=== PATIENT | female | born 1955 | race Caucasian/White ===

== ENCOUNTER 2023-03-09 10:09 | Outpatient (CLI) | payer MEDICARE, SELFPAY | END 2023-03-09 10:10 | disposition home or self-care (01) | PROVIDERS: PCP Internal Medicine; Visit Provider Internal Medicine | DX: E78.5 Hyperlipidemia, unspecified (principal); M85.80 Other specified disorders of bone density and structure, unspecified site | CPT/HCPCS: 80061; 82306 ==

== ENCOUNTER 2023-03-16 10:37 | Outpatient (CLI) | payer MEDICARE, OTHER, SELFPAY ==
--- NOTE | 2023-03-16 10:45 | CRLHL7_ITS ---
For Patients: As a result of the Cures Act, medical imaging exams and procedure reports are released immediately into your electronic medical record. You may view this report before your referring provider. If you have questions, please contact your health care provider. DIGITAL DIAGNOSTIC BILATERAL MAMMOGRAM USING TOMOSYNTHESIS AND COMPUTER-AIDED DETECTION LEFT BREAST ULTRASOUND CLINICAL HISTORY: LEFT breast pain. COMPARISON: 11/16/2021, 10/20/2020, 09/06/2019, 08/28/2018. TECHNIQUE: Digital BILATERAL mammogram in four projections. Tomosynthesis and CAD utilized. Real-time ultrasound imaging of LEFT breast with imaging documentation. BREAST COMPOSITION: There are areas of scattered fibroglandular density. FINDINGS: 3D CC/MLO BILATERAL mammogram images submitted. No suspicious masses or architectural distortion. No adenopathy or suspicious calcifications. Targeted LEFT breast ultrasound performed in the area of concern at 2 o`clock and 1 o`clock 5 cm from the nipple. Normal fibroglandular tissue is noted. No fibrocystic change or mass. IMPRESSION: Normal BILATERAL mammograms and normal targeted LEFT breast ultrasound. No evidence of malignancy. RECOMMENDATIONS: Annual BILATERAL screening mammography. Results and recommendations discussed with the patient. BI-RADS Category 2: Benign A lay language report of this examination will be provided to the patient. Dictated by Conrad Oquendo MD @ 03/16/2023 12:38:56 PM /Dictated by: Conrad Oquendo MD @ 03/16/2023 12:38:00 PM (Electronically Signed)
--- NOTE | 2023-03-16 11:15 | CRLHL7_ITS ---
For Patients: As a result of the Cures Act, medical imaging exams and procedure reports are released immediately into your electronic medical record. You may view this report before your referring provider. If you have questions, please contact your health care provider. PLEASE SEE DIGITAL DIAGNOSTIC BILATERAL MAMMOGRAM PERFORMED SAME DAY CRL:whitney olson/Dictated by: oCnrad Oquendo MD @ 03/16/2023 12:39:00 PM (Electronically Signed)
== END 2023-03-16 10:38 | disposition home or self-care (01) ==
LOC: MAMMO 10:38
PROVIDERS: PCP Internal Medicine; Visit Provider Internal Medicine
DX: N64.4 Mastodynia (principal)
CPT/HCPCS: 76642; 77066; G0279

== ENCOUNTER 2023-08-30 14:55 | Outpatient (CLI) | payer MEDICARE, BC, SELFPAY | END 2023-08-30 14:56 | disposition home or self-care (01) | LOC: NFLDREF 14:56 | PROVIDERS: PCP Internal Medicine; Visit Provider Registered Nurse | DX: R39.15 Urgency of urination (principal) | CPT/HCPCS: 87086 ==

== ENCOUNTER 2023-09-01 14:48 | Outpatient (CLI) | payer MEDICARE, BC, SELFPAY ==
--- NOTE | 2023-09-01 15:00 | CRLHL7_ITS ---
For Patients: As a result of the Century Cures Act, medical imaging exams and procedure reports are released immediately into your electronic medical record. You may view this report before your referring provider. If you have questions, please contact your health care provider. INDICATION: Pelvic and abdominal bloating COMPARISON: none TECHNIQUE: 2D krueegr scale images were acquired of the pelvis using a transabdominal and transvaginal approach. FINDINGS: Sonographic images demonstrate a normal size and smooth outer contour of the uterus. Uterus measures 6.8 cm in length by 3.4 cm in AP diameter by 4.1 cm in transverse dimension. Intramural fibroid is present within the right fundal myometrium measuring 1.5 x 1.3 x 1.4 cm. A 2nd right-sided intramural fibroid is present in the mid uterus measuring 1.3 x 0.7 x 0.8 cm. The endometrial lining measures 2.7 mm in composite thickness. The right ovary measures 2.6 x 1.3 x 1.9 cm in size and the left ovary measures 3.0 x 1.2 x 2.5 cm. There are no suspicious fluid collections within the cul-de-sac. Simple left ovarian cyst is present measuring 2.5 x 1.4 x 2.1 cm. IMPRESSION: Two intramural uterine fibroids measuring 1.5 cm and 1.3 cm. Simple left ovarian cyst measuring 2.5 cm. Dictated by Conrad Oquendo MD @ 09/07/2023 10:45:17 AM (Electronically Signed)
== END 2023-09-01 14:49 | disposition home or self-care (01) ==
LOC: US 14:49
PROVIDERS: PCP Internal Medicine; Visit Provider Registered Nurse
DX: R14.0 Abdominal distension (gaseous) (principal); D25.9 Leiomyoma of uterus, unspecified; N83.202 Unspecified ovarian cyst, left side
CPT/HCPCS: 76830; 76856

== ENCOUNTER 2024-03-13 08:01 | Outpatient (CLI) | payer MEDICARE, BC, SELFPAY ==
--- OUTSIDE RECORDS SUMMARY | 2024-03-15 05:58 | XMS_ITS | Clinical Summary ---
Author Organization [employer] [facility] Address [place], [place] [address] Care Team Providers Care Human Resources Executive Assistant Name Role Phone Verónica Pearl AuD Unavailable [phone] Nicole Ramey MD Primary Care Provider [phone] Allergies Active Allergy Reactions Criticality Noted Date Comments Meperidine *Unknown 03/19/2012 After childbirth had a reaction, went out, had to give another rx to counteract the med. Shellfish Containing Products Throat Swelling/Closing High 05/21/2007 Sulfa (Sulfonamide Antibiotics) 11/14/2006 Medications Medication Sig Dispensed Refills Start Date End Date Status EPINEPHrine (EPIPEN) 0.3 mg/0.3 mL (1:1,000) injectionIndicatio ns:Allergy to seafood Inject 0.3 mg intramuscular one time if needed for Allergic Reaction. 1 Each 5 06/17/2014 Active CPAP autoCPAP, heated humidifier, mask, headgear, filters and tubing. Pressure: 4-15cm/H2O Length of Need: 99 1 Device 0 12/08/2014 Active nitroglycerin (NITROSTAT) 0.4 mg sublingual tabletIndications: Atypical chest pain Place 1 tablet under the tongue every 5 minutes if needed for Chest Pain. 1 Bottle 5 07/22/2015 Active metoprolol succinate (TOPROL XL) 25 mg Sustained-Release tabletIndications: Frequent PVCs TAKE ONE TABLET BY MOUTH AT BEDTIME. Please have MD Kimble provide further refills. 90 tablet 11/09/2017 Active atorvastatin (LIPITOR) 20 mg tabletIndications: Hyperlipidemia, unspecified TAKE ONE TABLET BY MOUTH EVERY DAY 90 tablet 2 11/16/2017 Active sertraline (ZOLOFT) 50 mg tabletIndications: Major depressive disorder, recurrent episode, mild (HC) TAKE ONE TABLET BY MOUTH EVERY DAY 90 tablet 03/27/2018 Active CPAPIndications:Ob structive sleep apnea CPAP supplies, Heated humidifier x 1, Humidifier chamber x 1, 1 unit 11 03/04/2019 Active Active Problems Problem Noted Date Diagnosed Date Routine adult health maintenance 05/26/2017 Overview: Colonoscopy 05/2017 normal repeat in 10 years Palpitations 09/30/2016 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 Overview: 04/2016 Holter: 21% premature ventricular contractions 10/2016 Holter: 10% premature ventricular contractions Hernia, hiatal 12/30/2014 Obstructive sleep apnea 11/25/2014 AHI-7, REM -35 12/08/2014 Subjective tinnitus 08/10/2012 Atypical chest pain 09/22/2011 Overview: stress echocardiogram normal Major depression, recurrent 07/27/2011 Allergy to seafood Overview: Throat swelling Resolved Problems Problem Noted Date Diagnosed Date Resolved Date Posterior tibial tendon dysfunction 01/17/2012 06/17/2014 Overview: Left Chronic fatigue syndrome 05/2012 Encounters Date Type Department Care Team Description 01/09/2024 11:00 AM CDT Orders Only [facility] [address] [place] [address] Lab, [place] Lab 01/09/2024 Travel 01/03/2024 3:00 PM CDT Office Visit [facility] [address] [place] [address] Giovanni Castro MD Sleep Follow-up 01/03/2024 Travel 01/02/2024 Orders Only [facility] Scanner 1 scan: (1-Ord) RESMED, COMPLIANCE REPORT, 01/02/2024 from Last 3 Months Immunizations Name Administration Dates Next Due AMB INFLUENZA, IIV4 (AGE=>6M OS) MDV (Flu Clinic Only) 06/11/2017 Influenza, IIV3 (Age >=3 years) 07/08/2016,07/09,05/26/2011 Influenza, IIV4 07/02/2015 Td, Preservative Free (age >= 7 Years) 7 Tdap 01/19/2007 Zoster (Zostavax-ZVL, live) 07/22/2015 Family History Medical History Relation Name Comments Psychiatric illness Daughter 25 Alcohol/Drug Father Arthritis Father Cancer-prostate Father Other Father macular degener ation / catarcts Cancer-breast Mother 59 Heart Disease Mother 59 Relation Name Status Comments Daughter 25 Father Mother 59 Social History Tobacco Use Types Packs/Day Years Used Date Smoking Tobacco: Former Smokeless Tobacco: Never Tobacco Cessation:Counseling Given: Yes Alcohol Use Standard Drinks/Week Comments Yes 0 (1 standard drink = 0.6 oz pur e alcohol) social Social Connections Answer Date Recorded Frequency of Communication with Friends and Fami ly Not on file 01/03/2024 Sex and Gender Information Value Date Recorded Sex Assigned at Not on file Gender Identity Not on file Sexual Orientation Not on file Obstetrics History Para Term AB IAB SAB Ectopic Multiple Livin g Live Births 4 4 4 4 Date Outcome GA Total Labor Labor/2nd/3rd Weight Sex Type Anes PTL Kristyn A1 A5 Name Clin Term Term Term Term Last Filed Vital Signs Vital Sign Reading Time Taken Comments Blood Pressure 123/74 01/03/2024 3:10 PM CDT Pulse 57 01/03/2024 3:10 PM CDT Temperature 36.6 ??C (97.9 ??F) 03/04/2019 4:13 PM CD T Respiratory Rate 16 11/11/2016 9:10 AM SOLUTION ARCHITECT Oxygen Saturation 97% 01/03/2024 3:10 PM CDT Inhaled Oxygen Concentration - - Weight 72.8 kg (160 lb 6.4 oz) 01/03/2024 3:10 P M CDT Height 163.2 cm (5' 4.25) 01/03/2024 3:10 PM CD T Body Mass Index 27.32 01/03/2024 3:10 PM CDT Plan of Treatment Upcoming Encounters Date Type Department Care Team (Late st Contact Info) Description 04/04/2024 8:00 AM CDT Office Visit [facility] [address] [facility] [place] [address] Giovanni Castro MD [address] [facility] [place] [address] Health Maintenance Due Date Last Done Comments Hepatitis C screening for ag e 18-79 1973 Zoster (shingles) series for age 50+ (2 of 3) 09/16/2015 07/22/2015 Depression screening for age 12+ 08/11/2018 08/11/2017, 07/29/2016, 04/26/2016, Additional history exists Mammogram for age 45-75 08/25/2018 08/25/20 17, 08/25/2017 (Completed outside of [facility]), 07/22/2015, Additional history exists DEXA/DXA scan for age 65+ 01/19/2020 01/11/2011 Medicare Wellness for age 65+ 01/19/2020 Pneumococcal series for age 65+ (1 of 1 - PCV) 01/19/2020 Lipids for age 45-75 08/22/2022 08/22/2017, 11/11/2016, 07/29/2016, Additional history exists COVID-19 vaccine series ( season) 2023 02/12/2023, 07/21/2022, 02/23/2022, Additional history exists Influenza for age 65+ 05/12/2024 06/11/2017 , 07/08/2016, 07/02/2015, Additional history exists BMI (ht and wt on same day) for age 18+ 01/02/2025 01/03/2024, 08/11/2017, 09/30/2016, Additional history exists Colonoscopy through age 75 05/26/202705/26, 05/26/2017, 05/26/2017, Additional history exists Tetanus booster 08/11/2027 08/11/2017, 01/19/2007 Tdap Completed 01/19/2007 Procedures Procedure Name Priority Date/Time Associated Diagnosis Comments IRON PLUS IRON BINDING CAP Routine 01/09/2024 11:03 AM CDT Low iron stores SCAN-DIAGNOSTIC REPORT 01/02/2024 12:00 AM CDT SCAN-MAMMOGRAPHY REPORT 08/25/2017 12:00 AM SOLUTION ARCHITECT LIPID PANEL W REFLEX MEASURED LDL Routine 08/22/2017 7:52 AM SOLUTION ARCHITECT Routine general medical examination at a health care facility COLONOSCOPY 05/26/2017 9:03 AM CDT XR DXA BONE DENSITY 2 SITES AXIAL Routine 01/11/2011 10:14 AM CDT Menopausal disorder from Last 3 Months or Most Recently Relevant to Health Maintenance Results * (ABNORMAL) IRON PLUS IRON BINDING CAP (01/09/2024 11:03 AM CDT) IRON 49 37 - 145 ug/dL 01/10/2024 2:03 AM CDT [facility] UIBC (UNSATURATED) 392(H) 112 - 347 ug/dL 01/10/2024 2:03 AM CDT [facility] IRON BINDING CAPACITY 441(H) 250 - 400 ug/dL 01/10/2024 2:03 AM CDT [facility] IRON,% SATURATION 11(L) 14 - 50 % 01/10/2024 2:03 AM CDT [facility] Blood BLOOD SPECIMEN / Unknown Venipuncture / Unknown 01/09/2024 11:03 AM CDT 01/09/2024 11:04 AM CDT Giovanni Castro MD [facility] [address] [place] [id number], * SCAN-DIAGNOSTIC REPORT (01/02/2024 12:00 AM CDT) Scanner OTHER * SCAN-MAMMOGRAPHY REPORT (08/25/2017 12:00 AM SOLUTION ARCHITECT) Anatomical Region Laterality Modality Other Scanner OTHER * LIPID PANEL W REFLEX MEASURED LDL (08/22/2017 7:52 AM SOLUTION ARCHITECT) CHOLESTEROL,TOTAL 153 100 - 199 mg/dL 08/22/2017 2:26 PM SOLUTION ARCHITECT [facility] TRIGLYCERIDES 51 <150 mg/dL 08/22/2017 2:26 PM SOLUTION ARCHITECT [facility] HDL CHOLESTEROL 82 >40 mg/dL 7 2:26 PM SOLUTION ARCHITECT [facility] NON-HDL CHOLESTEROL 71 <145 mg/dl 08/22/2017 2:26 PM SOLUTION ARCHITECT [facility] CHOL/HDL RATIO 1.87 <4.50 08/22/2017 2:26 PM SOLUTION ARCHITECT [facility] LDL CHOLESTEROL 61 <=130 mg/dL 08/22/2017 2:26 PM SOLUTION ARCHITECT [facility] PROVIDER ORDERED STATUS RANDOM 08/22/2017 2:26 PM SOLUTION ARCHITECT [facility] Blood BLOOD SPECIMEN / Unknown Venipuncture / Unknown 08/22/2017 7:52 AM SOLUTION ARCHITECT 08/22/2017 7:52 AM SOLUTION ARCHITECT Sarah Kimble MD CHEMISTRY [facility] [address] [place] [address], [place] * COLONOSCOPY (05/26/2017 9:03 AM CDT) 05/26/2017 9:03 AM CDT Narrative Transcriptions Elijah Fowler MD - 05/26/2017 10:28 AM CDT Patient Name: Norma Flor Procedure Date: 05/26/2017 Gender: Female Date of : 1955 Admit Type: Outpatient Procedure: Colonoscopy Proceduralist: Elijah Fowler MD , Irma Hastings (Nurse) Indications/Pre-Op Diagnosis: Screening for colorectal malignant neoplasm, Last colonoscopy: May 2007 Medications: Fentanyl 100 micrograms IV, Midazolam 3 mgIV Procedure Description: The patient had risks, benefits and alternatives explained to andgave informed consent. The patient had a stable cardiopulmonary status and judged an adequate candidate for conscious sedation. The colonoscope was passed through the anus and advanced to thececum, identified by appendiceal orifice and ileocecal valve. Thecolonoscopy was performed without difficulty. The patient tolerated the procedure well. The quality of the bowel preparation was good. The ileocecal valve, appendiceal orifice, and rectum were photographed. Complications: No immediate complications. Estimated Blood Loss & Specimen: Estimated blood loss: none. Specimen collected - None Findings: The perianal and digital rectal examinations were normal. The entire examined colon appeared normal on direct and retroflexion views. Impressions/Post-Op Diagnosis: - The entire examined colon is normal on direct and retroflexionviews. - No specimens collected. Recommendation: - Patient has a contact number available for emergencies. The signsand symptoms of potential delayed complications were discussed with the patient. Return to normal activities tomorrow. Written discharge instructions were provided to the patient. - Resume previous diet. - Continue present medications. - Repeat colonoscopy in 10 years for screening purposes. Moderate Sedation: Moderate (conscious) sedation was administered by the endoscopy nurse and supervised by the endoscopist. The following parameters were monitored: oxygen saturation, heart rate, respiratory rate, blood pressure, adequacy of pulmonary ventilation and reponse to care. [facility] and nursing notes for moderate sedation details. Total physician intraservice time was 20 minutes. Elijah Fowler MD 05/26/2017 10:28:29 AM This report has been signed electronically. Note Initiated On: 05/26/2017 9:03 AM Procedure Code(s): --- Professional --- 46656, Colonoscopy, flexible; diagnostic, including collection of specimen(s) bybrushing or washing, when performed (separateprocedure) Diagnosis Code(s): --- Professional --- Z12.11, Encounter for screening formalignant neoplasm of colon CPT copyright 2016 [employer]. All rights reserved. The codes documented in this report are preliminary and upon inpatient coder reviewmay be revised to meet current compliance requirements. Scope In: 10:04:18 AM Scope Withdrawal Time 0 hours 9 minutes 32 seconds Scope Out: 10:20:28 AM Elijah Fowler MD PROCEDURE ORD * (ABNORMAL) XR DEXA BONE DENSITY 2 SITES (01/11/2011 10:14 AM CDT) Anatomical Region Laterality Modality Spine, HIPS, HIPL, HIPR Bone Den sitometry Narrative 01/13/2011 8:56 PM CDT Please see scanned document for results of this study. Procedure Note Sarah Kimble MD - 01/13/2011 Please see scanned document for results of this study. Sarah Kimble MD DEXA from Last 3 Months or Most Recently Relevant to Health Maintenance Care Teams Human Resources Executive Assistant Relationship Specialty Start Date End Date Nicole Ramey MD [address] [place] [address] PCP - General Internal Medicine 03/16/18 Verónica Pearl AuD Audiology 08/10/12
== END 2024-03-13 08:02 | disposition home or self-care (01) ==
LOC: NFLDREF 03-15 05:57
PROVIDERS: PCP Internal Medicine; Referring Provider Internal Medicine; Visit Provider Internal Medicine
DX: M85.80 Other specified disorders of bone density and structure, unspecified site (principal); E78.5 Hyperlipidemia, unspecified
CPT/HCPCS: 80061; 82306

== ENCOUNTER 2024-04-01 08:40 | Outpatient (CLI) | payer MEDICARE, BC, SELFPAY ==
--- OUTSIDE RECORDS SUMMARY | 2024-04-01 08:43 | XMS_ITS | Clinical Summary ---
Author Organization [employer] [facility] Address [place], [place] [address] Care Team Providers Care Communications Editor Name Role Phone Verónica Pearl AuD Unavailable [phone] Nicole Ramey MD Primary Care Provider [phone] Allergies Active Allergy Reactions Criticality Noted Date [...] Description 01/09/2024 11:00 AM CDT Orders Only [facility] [address] [place] [address] Lab, [place] Lab 01/09/2024 Travel 01/03/2024 3:00 PM CDT Office Visit [facility] [address] [place] [address] Giovanni Castro MD Sleep Follow-up 01/03/2024 Travel 01/02/2024 Orders Only [facility] Scanner 1 scan: (1-Ord) [...] T Respiratory Rate 16 11/11/2016 9:10 AM CLOTHES DRIER REPAIRER Oxygen Saturation 97% 01/03/2024 3:10 PM CDT Inhaled Oxygen Concentration - - Weight 72.8 kg (160 lb 6.4 oz) 01/03/2024 3:10 P M CDT Height 163.2 cm (5' 4.25) 01/03/2024 3:10 PM CD T Body Mass Index 27.32 01/03/2024 3:10 PM CDT Plan of Treatment Upcoming Encounters Date Type Department Care Team (Late st Contact Info) Description 04/04/2024 8:00 AM CDT Office Visit [facility] [address] [facility] [place] [address] Giovanni Castro MD [address] [place] [place] [address] Health Maintenance Due Date Last Done Comments Hepatitis C screening for ag e 18-79 1973 Zoster (shingles) series for age 50+ (2 of 3) 09/16/2015 07/22/2015 Depression screening for age 12+ 08/11/2018 08/11/2017, 07/29/2016, 04/26/2016, Additional history exists Mammogram for age 45-75 08/25/2018 08/25/20 17, 08/25/2017 (Completed outside of [facility]), 07/22/2015, Additional history exists DEXA/DXA scan for [...] AM CDT SCAN-MAMMOGRAPHY REPORT 08/25/2017 12:00 AM CLOTHES DRIER REPAIRER LIPID PANEL W REFLEX MEASURED LDL Routine 08/22/2017 7:52 AM CLOTHES DRIER REPAIRER Routine general medical examination at a health care facility COLONOSCOPY 05/26/2017 9:03 AM CDT XR DXA BONE DENSITY 2 SITES AXIAL Routine 01/11/2011 10:14 AM CDT Menopausal disorder from Last 3 Months or Most Recently Relevant to Health Maintenance Results * (ABNORMAL) IRON PLUS IRON BINDING CAP (01/09/2024 11:03 AM CDT) IRON 49 37 - 145 ug/dL 01/10/2024 2:03 AM CDT [facility] UIBC (UNSATURATED) 392(H) 112 - 347 ug/dL 01/10/2024 2:03 AM CDT [facility] IRON BINDING CAPACITY 441(H) 250 - 400 ug/dL 01/10/2024 2:03 AM CDT [facility] IRON,% SATURATION 11(L) 14 - 50 % 01/10/2024 2:03 AM CDT [facility] Blood BLOOD SPECIMEN / Unknown Venipuncture / Unknown 01/09/2024 11:03 AM CDT 01/09/2024 11:04 AM CDT Giovanni Castro MD [facility] [address] [place] [id number], * SCAN-DIAGNOSTIC REPORT (01/02/2024 12:00 AM CDT) Scanner OTHER * SCAN-MAMMOGRAPHY REPORT (08/25/2017 12:00 AM CLOTHES DRIER REPAIRER) Anatomical Region Laterality Modality Other Scanner OTHER * LIPID PANEL W REFLEX MEASURED LDL (08/22/2017 7:52 AM CLOTHES DRIER REPAIRER) CHOLESTEROL,TOTAL 153 100 - 199 mg/dL 08/22/2017 2:26 PM CLOTHES DRIER REPAIRER [facility] TRIGLYCERIDES 51 <150 mg/dL 08/22/2017 2:26 PM CLOTHES DRIER REPAIRER [facility] HDL CHOLESTEROL 82 >40 mg/dL 7 2:26 PM CLOTHES DRIER REPAIRER [facility] NON-HDL CHOLESTEROL 71 <145 mg/dl 08/22/2017 2:26 PM CLOTHES DRIER REPAIRER [facility] CHOL/HDL RATIO 1.87 <4.50 08/22/2017 2:26 PM CLOTHES DRIER REPAIRER [facility] LDL CHOLESTEROL 61 <=130 mg/dL 08/22/2017 2:26 PM CLOTHES DRIER REPAIRER [facility] PROVIDER ORDERED STATUS RANDOM 08/22/2017 2:26 PM CLOTHES DRIER REPAIRER [facility] Blood BLOOD SPECIMEN / Unknown Venipuncture / Unknown 08/22/2017 7:52 AM CLOTHES DRIER REPAIRER 08/22/2017 7:52 AM CLOTHES DRIER REPAIRER Sarah Kimble MD CHEMISTRY [facility] [address] [place] [address], [place] * COLONOSCOPY (05/26/2017 9:03 AM CDT) [...] reponse to care. [facility] and nursing notes for moderate sedation details. Total physician intraservice time was 20 minutes. Elijah Fowler MD 05/26/2017 10:28:29 AM This report has been signed electronically. Note Initiated On: 05/26/2017 9:03 AM Procedure Code(s): --- Professional --- 59454, Colonoscopy, flexible; diagnostic, including collection of specimen(s) bybrushing or washing, when performed (separateprocedure) Diagnosis Code(s): --- Professional --- Z12.11, Encounter for screening formalignant neoplasm of colon CPT copyright 2016 [employer] [place] [employer]. All rights reserved. The codes documented in this report are preliminary and upon substitute crossing guard reviewmay be revised to meet current compliance [...] Recently Relevant to Health Maintenance Care Teams Communications Editor Relationship Specialty Start Date End Date Nicole Ramey MD [address] [place] [address] PCP - General Internal Medicine 03/16/18 Verónica Pearl AuD Audiology 08/10/12
--- NOTE | 2024-04-01 08:45 | CRLHL7_ITS ---
For Patients: As a result of the Century Cures Act, medical imaging exams and procedure reports are released immediately into your electronic medical record. You may view this report before your referring provider. If you have questions, please contact your health care provider. BILATERAL SCREENING MAMMOGRAM WITH COMPUTER-AIDED DETECTION AND TOMOSYNTHESIS TECHNIQUE: CC and MLO views were obtained. These mammographic images have been obtained using full-field digital technique. These mammographic images were interpreted with the benefit of computer-aided detection. Breast Tomosynthesis was used in this interpretation. COMPARISON FILM: 03/16/23, 03/09/23, 11/16/21. FINDINGS: There are scattered areas of fibroglandular density. IMPRESSION: There is no radiographic evidence for malignancy. ASSESSMENT: BI-RADS Category 1: Negative RECOMMENDATION: Routine screening mammogram in 1 year. A lay language report of this examination will be provided to the patient. Conrad Oquendo M.D. Diagnostic Radiologist [email or web address] SP/Dictated by: Conrad Oquendo MD @ 04/01/2024 10:13:00 AM (Electronically Signed)
== END 2024-04-01 08:41 | disposition home or self-care (01) ==
PROVIDERS: PCP Internal Medicine; Visit Provider Internal Medicine
DX: Z12.31 Encounter for screening mammogram for malignant neoplasm of breast (principal)
CPT/HCPCS: 77063; 77067

== ENCOUNTER 2024-09-26 12:10 | Outpatient (CLI) | payer MEDICARE, BC, SELFPAY ==
--- NOTE | 2024-09-26 12:15 | CRLHL7_ITS ---
For Patients: As a result of the Century Cures Act, medical imaging exams and procedure reports are released immediately into your electronic medical record. You may view this report before your referring provider. If you have questions, please contact your health care provider. CLINICAL HISTORY: pelvic and perineal pain TECHNIQUE: 2D krueger scale ultrasound. In addition color Doppler and spectral Doppler analysis was performed of the pelvis using a transabdominal and transvaginal approach. FINDINGS: Intramural right fundal fibroid is present measuring 14 x 8 x 9 millimeters. A 2nd right-sided fundal fibroid is noted in the subserosal myometrium measuring 14 x 7 x 13 millimeters. The uterus measures 6.0 x 4.4 x 4.9 cm. The endometrial lining measures 1.3 millimeters in thickness. The right ovary measures 3.7 x 1.4 x 2.9 cm in size and the right ovary measures 3.0 x 1.4 x 2.1 cm. The ovaries demonstrate normal arterial and venous blood flow on color Doppler and spectral Doppler analysis. There are no suspicious fluid collections within the cul-de-sac. A circumscribed left ovarian cyst is present measuring 2.4 x 1.1 x 2.0 cm. The echotexture is anechoic with the exception of a small echogenic nodule measuring 2.5 millimeters associated with the cyst wall. IMPRESSION: Uterine fibroids are present measuring 1.4 cm and 1.4 cm. Endometrial thickness 1 millimeter. Unilocular left ovarian cyst with a 2.5 millimeter echogenic solid component. Follow-up options include MRI or per referring provider. Dictated by Conrad Oquendo MD @ 09/27/2024 11:15:51 AM (Electronically Signed)
== END 2024-09-26 12:11 | disposition home or self-care (01) ==
LOC: US 12:10
PROVIDERS: PCP Internal Medicine; Visit Provider Registered Nurse
DX: R10.2 Pelvic and perineal pain (principal); N83.202 Unspecified ovarian cyst, left side; D25.1 Intramural leiomyoma of uterus; N94.9 Unspecified condition associated with female genital organs and menstrual cycle
CPT/HCPCS: 76830; 76856; 93976

== ENCOUNTER 2024-09-30 11:50 | Outpatient (CLI) | payer MEDICARE, BC, SELFPAY | END 2024-09-30 11:51 | disposition home or self-care (01) | LOC: NFLDREF 10-02 00:39 | PROVIDERS: PCP Internal Medicine; Referring Provider Internal Medicine; Visit Provider Registered Nurse | DX: N83.209 Unspecified ovarian cyst, unspecified side (principal) | CPT/HCPCS: 86304 ==

== ENCOUNTER 2024-10-01 14:18 | Outpatient (CLI) | payer MEDICARE, BC, SELFPAY ==
--- NOTE | 2024-10-01 14:30 | CRLHL7_ITS ---
For Patients: As a result of the Century Cures Act, medical imaging exams and procedure reports are released immediately into your electronic medical record. You may view this report before your referring provider. If you have questions, please contact your health care provider. INDICATION: Follow-up ovarian cyst TECHNIQUE: 1.5 T MRI performed with pre and postcontrast T1 weighted imaging; T2 weighted imaging. 20 mL Dotarem administered COMPARISON: Pelvic ultrasound 09/26/2024 FINDINGS: Uterus: Retroverted uterus that is normal in size measuring 2.5 x 5.6 cm cm. The endometrium measures 3 mm in thickness. There are at least 5 small intramural fibroids measuring up to 1 cm along the posterior uterine fundus (06/28). No definite evidence of uterine endometriosis or adenomyosis. Cervical stroma: Intact without evidence of mass Ovaries/adnexa: Simple left ovarian cyst measuring 1.5 x 2.5 cm (05/31). No definite evidence of soft tissue nodule or suspicious enhancement to correlate with that seen on prior pelvic ultrasound, however this may be below MRI resolution. This cyst is relatively stable in size compared to prior pelvic ultrasound given differences in technique. Few punctate T1 hyperintense foci within the bilateral, right greater than left, ovaries (/). The bilateral ovaries are otherwise unremarkable. No evidence of adnexal mass. Remaining pelvis: Limited evaluation of the abdominal viscera demonstrates normal appearance of the visualized bowel and urinary bladder. Vasculature: The iliac arteries are patent. Lymph nodes: No enlarged lymph nodes within the pelvis. Peritoneal space: No free fluid within the pelvis. Musculoskeletal: Heterogeneous bone marrow, which is nonspecific. IMPRESSION: 1. Stable size of a simple left ovarian cyst compared to prior pelvic ultrasound. No definite evidence of soft tissue nodule or suspicious enhancement to correlate with that seen on prior pelvic ultrasound, however this may be below MRI resolution. Consider follow-up ultrasound in 6 months to 1 year to assess for resolution. 2. Possible punctate endometriomas in the bilateral ovaries. 3. Multiple small intramural uterine fibroids. Endometrial thickness is normal. Dictated by Gale Mccann MD @ 10/02/2024 10:21:25 AM (Electronically Signed)
== END 2024-10-01 14:19 | disposition home or self-care (01) ==
LOC: MRI 14:19
PROVIDERS: PCP Internal Medicine; Visit Provider Registered Nurse
DX: N83.202 Unspecified ovarian cyst, left side (principal); D25.1 Intramural leiomyoma of uterus
CPT/HCPCS: 72197; A9575

== ENCOUNTER 2024-10-15 16:45 | Outpatient (RCR) | payer MEDICARE, BC, SELFPAY | END 2024-10-16 08:36 | disposition home or self-care (01) | PROVIDERS: PCP Internal Medicine; Visit Provider Orthopaedic Surgery | DX: S52.502D Unspecified fracture of the lower end of left radius, subsequent encounter for closed fracture with routine healing (principal); M25.532 Pain in left wrist; R53.1 Weakness; Z51.89 Encounter for other specified aftercare | CPT/HCPCS: 97110; 97140; 97165; 97530; X5282 ==

== ENCOUNTER 2025-01-23 10:45 | Outpatient (RCR) | payer MEDICARE, BC, SELFPAY | END 2025-04-30 11:28 | disposition home or self-care (01) | PROVIDERS: PCP Internal Medicine; Visit Provider Family Medicine | DX: M76.891 Other specified enthesopathies of right lower limb, excluding foot (principal); M25.551 Pain in right hip; Z51.89 Encounter for other specified aftercare | CPT/HCPCS: 97110; 97112; 97140; 97162; 97530 ==

== ENCOUNTER 2025-03-25 12:10 | Outpatient (CLI) | payer MEDICARE, BC, SELFPAY ==
--- NOTE | 2025-03-25 12:15 | CRLHL7_ITS ---
For Patients: As a result of the Century Cures Act, medical imaging exams and procedure reports are released immediately into your electronic medical record. You may view this report before your referring provider. If you have questions, please contact your health care provider. INDICATION: Ovarian cyst COMPARISON: 09/26/2024 ultrasound, 10/01/2024 MRI TECHNIQUE: 2D krueger-scale and color Doppler images were acquired of the pelvis using a transabdominal and transvaginal approach. Transvaginal imaging performed to better visualize the endometrial stripe and ovaries. FINDINGS: Sonographic images demonstrate a normal size and smooth outer contour of the uterus. Uterus measures 6.7 cm in length by 3.2 cm in AP diameter by 4.5 cm in transverse dimension. The myometrium has a heterogeneous echotexture. The endometrial lining appears normal and measures 2 mm in composite thickness. The right ovary measures 2.6 x 0.9 x 1.8 cm in size and the left ovary measures 3.3 x 1.3 x 2.1 cm. The ovaries demonstrate normal arterial and venous blood flow on color Doppler analysis. There are no suspicious fluid collections within the cul-de-sac. Left ovarian cyst is present which measures 2.4 x 1.0 x 1.7 cm, previously measuring 2.4 x 1.1 x 2.0 cm. Echogenic non shadowing structure associated with this cyst, not significantly changed, measures 3 x 3 x 3 millimeters. No color Doppler flow present. IMPRESSION: Stable benign left ovarian cyst which is mostly anechoic and measures 2.4 cm. Stable nonshadowing echogenic focus associated with the cyst measures 3 millimeters. Dictated by Conrad Oquendo MD @ 03/25/2025 3:04:06 PM (Electronically Signed)
== END 2025-03-25 12:11 | disposition home or self-care (01) ==
LOC: US 12:11
PROVIDERS: PCP Internal Medicine; Visit Provider Registered Nurse
DX: N83.209 Unspecified ovarian cyst, unspecified side (principal); N83.202 Unspecified ovarian cyst, left side
CPT/HCPCS: 76830; 76856

== ENCOUNTER 2025-04-03 11:19 | Outpatient (CLI) | payer MEDICARE, BC, SELFPAY | END 2025-04-03 11:20 | disposition home or self-care (01) | PROVIDERS: PCP Internal Medicine; Visit Provider Internal Medicine | DX: E78.5 Hyperlipidemia, unspecified (principal); M85.80 Other specified disorders of bone density and structure, unspecified site; I49.3 Ventricular premature depolarization | CPT/HCPCS: 80061; 82306; 82728 ==

== ENCOUNTER 2025-04-08 14:01 | Outpatient (CLI) | payer MEDICARE, BC, SELFPAY ==
--- NOTE | 2025-04-08 14:58 | W.PM.STED ---
Stress Test Note Date Date Seen: 04/08/25 Date of test: 04/08/25 Providers Primary care provider: Nicole Ramey Stress test physician: Estrellita Soriano Stress Test Note Stress test ordered: Stress Echo Indication for test: Atypical chest pain Stress test medicine: None Results discussion: Resting EKG: Sinus rhythm, 60 beats per minute. Possible incomplete right bundle branch block with RSR but low-voltage in V2. Resting blood pressure: 120/68 Stress test: Patient is consented on the ordered stress test of exercise treadmill stress echo. Standard Roque protocol was followed, patient exercised to 10 minutes 48 seconds stopping due to reaching target heart rate and exercise capacity. This was equivocal it to 11.9 Mets. She reached a heart rate of 130 beats per minute which was 101% of calculated target heart rate of 128. As her exercise level increased, she exhibited more PVCs, did start to have some couplets of PVCs which she was asymptomatic for. She had no other arrhythmias. When I did start seen some couplets of PVCs, did stop the stress test as she was at her target heart rate at that time. She had good recovery, excellent blood pressure during stress testing. She had a rate pressure product of 18,980. Patient had no chest pain, no concerning symptoms. She did have shortness of breath but was not perceive to be out of the level for her exertion all capacity. She was discharged home in stable condition. Will await echo images to couple this for a full formal diagnostic. Impression: Subjectively negative, objectively negative EKG portion of this stress test for ischemia, did see increased PVC burden at higher levels of activity. Follow up suggested: Patient will discharge to home, she will await a call back from her ordering physician once the echo images have been read by Cardiology.
[2025-04-08 15:00] VITALS: BP 132/64; PULSE 68; RESP 20
== END 2025-04-08 14:02 | disposition home or self-care (01) ==
LOC: STRESS 14:03
PROVIDERS: PCP Internal Medicine; Visit Provider Internal Medicine
DX: R07.89 Other chest pain (principal); I34.0 Nonrheumatic mitral (valve) insufficiency; R53.83 Other fatigue; M85.80 Other specified disorders of bone density and structure, unspecified site; G25.81 Restless legs syndrome; I49.3 Ventricular premature depolarization
CPT/HCPCS: 80053; 84443; 84466; 86140; 93016; 93325; 93351

== ENCOUNTER 2025-04-24 11:27 | Outpatient (CLI) | payer MEDICARE, BC, SELFPAY ==
--- NOTE | 2025-04-24 11:30 | CRLHL7_ITS ---
For Patients: As a result of the Century Cures Act, medical imaging exams and procedure reports are released immediately into your electronic medical record. You may view this report before your referring provider. If you have questions, please contact your health care provider. INDICATION: BILATERAL SCREENING MAMMOGRAM, ASYMPTOMATIC 70 Y/O FEMALE COMPARISON: 04/01/2024, 03/16/2023, 11/16/2021 TECHNIQUE: Digital mammogram in CC and MLO projections including computer-aided detection (CAD) and tomosynthesis. BREAST COMPOSITION: There are scattered areas of fibroglandular density. FINDINGS: No suspicious findings. ASSESSMENT: BI-RADS 1 Negative RECOMMENDATION: Annual screening mammogram. A lay language report of this examination will be provided to the patient. Dictated by: Conrad Oquendo MD @ 04/24/2025 12:07:58 (Electronically Signed)
== END 2025-04-24 11:28 | disposition home or self-care (01) ==
LOC: MAMMO 11:28
PROVIDERS: PCP Internal Medicine; Visit Provider Internal Medicine
DX: Z12.31 Encounter for screening mammogram for malignant neoplasm of breast (principal)
CPT/HCPCS: 77063; 77067

== ENCOUNTER 2025-07-29 11:41 | Outpatient (CLI) | payer MEDICARE, BC, SELFPAY | END 2025-07-29 11:42 | disposition home or self-care (01) | PROVIDERS: PCP Internal Medicine; Visit Provider Family Medicine | DX: R79.0 Abnormal level of blood mineral (principal) | CPT/HCPCS: 80048; 82728 ==

== ENCOUNTER 2025-08-04 10:48 | Outpatient (CLI) | payer MEDICARE, BC, SELFPAY ==
--- NOTE | 2025-08-04 11:00 | CRLHL7_ITS ---
For Patients: As a result of the Century Cures Act, medical imaging exams and procedure reports are released immediately into your electronic medical record. You may view this report before your referring provider. If you have questions, please contact your health care provider. INDICATION: ABNORMAL LEVEL OF BLOOD MINERALS. TECHNIQUE: CT chest without IV contrast. COMPARISON: Chest radiograph dated 07/29/2025. FINDINGS: Lungs and pleura: No focal consolidation. Heart and vasculature: No cardiomegaly, no pericardial effusion. Thyroid and lower neck: No suspicious thyroid nodule. Mediastinum/steve: No lymphadenopathy. Chest wall: No axillary lymphadenopathy. Upper abdomen: No acute abnormality. Too small to characterize hypodense hepatic lesions, likely benign in the absence of a known malignancy. Bones: Multilevel degenerative changes of the spine. Bones are osteopenic. Mild retrolisthesis of T12 on L1. IMPRESSION: 1. No acute intrathoracic abnormality identified. 2. Mild retrolisthesis of T12 on L1, likely degenerative in etiology. Recommend correlation with neurologic exam. Please note that all CT scans at this facility use dose modulation, iterative reconstruction, and/or weight-based dosing when appropriate to reduce radiation dose to as low as reasonably achievable. Dictated by Daniel Jones MD @ 08/04/2025 5:41:21 PM (Electronically Signed)
== END 2025-08-04 10:49 | disposition home or self-care (01) ==
LOC: CT 10:49
PROVIDERS: PCP Internal Medicine; Visit Provider Family Medicine
DX: R79.0 Abnormal level of blood mineral (principal); R05.3 Chronic cough; M85.80 Other specified disorders of bone density and structure, unspecified site; M43.16 Spondylolisthesis, lumbar region; M47.816 Spondylosis without myelopathy or radiculopathy, lumbar region; K76.9 Liver disease, unspecified
CPT/HCPCS: 71250

== ENCOUNTER 2025-08-22 07:05 | Outpatient (CLI) | payer MEDICARE, BC, SELFPAY ==
--- NOTE | 2025-08-22 07:15 | CRLHL7_ITS ---
For Patients: As a result of the Century Cures Act, medical imaging exams and procedure reports are released immediately into your electronic medical record. You may view this report before your referring provider. If you have questions, please contact your health care provider. INDICATION: Nonspecified liver disease. COMPARISON: CT chest without and with contrast 08/04/2025; MRI of the abdomen 11/21/2018. TECHNIQUE: MRI abdomen without and with intravenous contrast; precontrast T1 and T2 weighted imaging; T2 haste imaging; diffusion-weighted imaging; in- and out of phase imaging; postcontrast imaging including subtraction; 16 cc dotarem contrast was injected IV. FINDINGS: Several sub cm simple cysts identified in the liver. No focal hepatic or splenic pathology. No pancreatic pathology. Gallbladder is unremarkable. No evidence of biliary duct dilatation. Splenic vein, superior mesenteric vein and portal vein are unremarkable. No adrenal pathology. Kidneys are unremarkable. No retroperitoneal lymphadenopathy. No evidence of abdominal ascites. IMPRESSION: 1. Several simple sub cm simple hepatic cysts without any interval change. 2. Negatively MR of the abdomen without and with intravenous contrast. Dictated by Darrian Hightower MD @ 08/22/2025 3:49:08 PM (Electronically Signed)
== END 2025-08-22 07:06 | disposition home or self-care (01) ==
LOC: MRI 07:06
PROVIDERS: PCP Internal Medicine; Visit Provider Internal Medicine
DX: K76.9 Liver disease, unspecified (principal); K76.89 Other specified diseases of liver
CPT/HCPCS: 74183; A9575